=== PATIENT | male | born 1975 | race Caucasian/White ===

== ENCOUNTER 2019-02-08 11:43 | Emergency (ER) | payer BC, SELFPAY ==
[2019-02-08 11:50] VITALS: BP 138/88; PULSE 80; RESP 17; TEMP 36.7
--- NOTE | 2019-02-08 11:51 | W.ED.GENAD ---
Discharge Plan Disposition Patient Disposition: HOME Condition: Good Discharge Details Chief Complaint: EarProblem Clinical Impression: Otitis media, Acute left otitis media Primary Care Provider: DANITZA YING ED Provider: Darshan Quiñonez Home Meds and New Rx's Prescriptions: New amoxicillin-pot clavulanate [Augmentin] 875-125 mg tablet 1 tab PO BID 7 Days Qty: 14 RF: 0 loratadine 10 mg capsule 10 mg PO DAILY Qty: 14 RF: 0 Continued sumatriptan succinate [Imitrex] 50 MG tablet 50 mg PO PRN PRNRF: 0 lamotrigine [Lamictal] 25 MG tablet 25 mg PO HS RF: 0 Discontinued amoxicillin-pot clavulanate 1 TAB tablet 1 ea PO BID Qty: 20 RF: 0 No Action nortriptyline 50 mg Capsule 50 mg PO RF: 0 Discharge Instructions Instructions: Otitis Media (ED) Additional Instructions: You have left-sided otitis media. Please take the antibiotic as directed. Please take the antihistamine loratadine to help increase the drainage, as well as Tylenol and Motrin as needed for pain. If you notice any worsening of your symptoms, or any new symptoms such as vomiting, diarrhea, fever, chills, shortness of breath, chest pain, numbness, weakness, or fainting , please return immediately to the emergency department for reevaluation. Please follow up with your primary care provider as soon as possible for reassessment and reevaluation. As always, it was a pleasure participating in your medical care today. Referrals: DANITZA YING [Primary Care Provider] - Medical Decision Making This is a very pleasant 43-year-old male who presents for left ear pain for the last 2 to 3 days. He has a history of tympanic membrane ruptures and wanted to make sure that he caught an infection early. Exam demonstrates mild to moderate left-sided otitis media. No evidence of mastoiditis, meningitis, or other significant life-threatening abnormality. He is not diabetic. We will start Augmentin, recommend loratadine for drainage, and NSAIDs for pain control. I have extensively reviewed the treatment plan and discharge instructions with the patient. I have addressed all patient concerns at this time. The patient was made aware of what symptoms to monitor for that would warrant a return to the emergency department. Discussed the plan with the patient, they demonstrate verbal understanding and agreement with our assessment and plan at this time. HPI General Date/Time Provider Initiated Documentation: 02/08/19 11:45. HPI Narrative: This is a pleasant 43-year-old male with no significant past medical history who presents today for evaluation of left ear pain. He states that he has had mild congestion for the last week, then mild left-sided ear pain for the last 2 to 3 days which is gradually been worsening. He has a history of otitis media in the past which has led to rupture twice before. He denies any drainage or rupture yet, and states that he wants to catch it early. He denies any headache, neck pain, fever, chills, vision changes, chest pain, shortness of breath, numbness, tingling, weakness, nausea vomiting or diarrhea. He has no other complaints at this time. No other modifying factors. He is not on any antibiotics, nor has he been on any recently. Related Data Home Medications Medication Instructions Recorded Confirmed lamotrigine [Lamictal] 25 mg PO HS 09/14/13 09/14/13 sumatriptan succinate [Imitrex] 50 mg PO PRN PRN 09/14/13 09/14/13 amoxicillin-pot clavulanate 1 tab PO BID 7 Days #14 tab 02/08/19 [Augmentin] erenumab-aooe [Aimovig 02/08/19 Autoinjector (2 Pack)] loratadine 10 mg PO DAILY #14 cap 02/08/19 nortriptyline 50 mg PO 02/08/19 onabotulinumtoxinA [Botox] 02/08/19 Previous Rx's Medication Instructions Recorded amoxicillin-pot clavulanate 1 tab PO BID 7 Days #14 tab 02/08/19 [Augmentin] loratadine 10 mg PO DAILY #14 cap 02/08/19 Allergies Allergy/AdvReac Type Severity Reaction Status Date / Time No Known Allergies Allergy Unverified 09/14/13 15:54 Review of Systems Review of Systems All systems reviewed & are unremarkable except as noted in HPI and below PFSH Social History Smoking/Tobacco Use Status: Never Drug use: Never Exam Narrative Exam Narrative: 1.Const: Well-nourished, Well-developed, appearing stated age 2.Eyes: PERRL, no conjunctival injection, and symmetrical lids. 3.ENT: Atraumatic external nose and ears. Moist MM. Left tympanic membrane is erythematous, bulging, with evidence of effusion. No evidence of rupture. Mild erythema surrounding the tympanic membrane. No evidence of otitis externa though. Right tympanic membrane is land pearly with no evidence of significant infection or abnormality. Neck: Symmetric, trachea midline, No thyromegaly. Patient demonstrates good movement of cervical neck. There is no nuchal rigidity, no nuchal tenderness. Patient is able to flex the neck without any difficulty or significant pain. Negative Kernig's and Brudzinski sign. 4.CVS: +S1/S2, No murmurs or gallops. Peripheral pulses 2+ and equal in all extremities. Brisk capillary refill in all extremities. 5.RESP: Unlabored respiratory effort. Clear to auscultation bilaterally. No wheezes rales or rhonchi 6.GI: Soft, Nontender/Nondistended, No hepatosplenomegaly. No guarding or rebound. 7.MSK: Normocephalic/Atraumatic, Extremities w/o deformity or ttp No cyanosis or clubbing, Normal movement of all extremities 8.Skin: Warm, Dry. No rashes or lesions. 9.Neuro: nurse specialist II-XII grossly intact. Sensation grossly intact, no focal neurologic deficits. 10.Psych: (AAO) x3. Appropriate mood and affect
== END 2019-02-08 12:05 | disposition home or self-care (01) ==
LOC: ER 12:11
PROVIDERS: Emergency Provider Student in an Organized Health Care Education/Training Program; PCP Internal Medicine
DX: H66.92 Otitis media, unspecified, left ear (principal)
CPT/HCPCS: 99283

== ENCOUNTER 2021-02-25 09:20 | Outpatient (REF) | payer BC, SELFPAY ==
[2021-02-25 10:49] LABS: Bilirubin Negative (Negative); Blood Negative (Negative); Clarity Clear (Clear); Glucose Negative (Negative); Ketones Negative (Negative); Leukocyte Esterase Negative (Negative); Nitrite Negative (Negative); Specific Gravity >= 1.030 (1.005-1.025); Urobilinogen 0.2 EU/dL (Up TO 0.2); pH 6.5 (5-8)
[2021-02-26 13:39] LABS: Chlamydia Result Negative (Negative); GC Result Negative (Negative)
== END 2021-02-25 09:21 | disposition home or self-care (01) ==
LOC: LBN 09:20
PROVIDERS: PCP Internal Medicine; Visit Provider Student in an Organized Health Care Education/Training Program
DX: N50.82 Scrotal pain (principal)
CPT/HCPCS: 87491; 87591; 81003

== ENCOUNTER 2021-03-05 09:16 | Outpatient (CLI) | payer BC, SELFPAY ==
[2021-03-05 13:05] LABS: FREE T4 0.81 ng/dL (0.76-1.46); TSH 1.83 uIU/mL (0.36-3.74)
[2021-03-05 21:43] LABS: Rheumatoid Factor <8.6 IU/mL (<12.0)
[2021-03-06 10:41] LABS: Kappa Free Light Chain 1.14 mg/dL (0.33-1.94); Lambda Free Light Chain 1.38 mg/dL (0.57-2.63)
[2021-03-06 15:26] LABS: Albumin 66.1 % (55.8-66.1); Total Protein 7.1 g/dL (6.3-8.2)
[2021-03-06 15:45] LABS: SS-A Antibody 0.6 Units (<20.0); SS-B (La) Ab, IgG 2.6 Units (<20.0)
[2021-03-07 15:23] LABS: Thiamine (Vitamin B1), WB 119 nmol/L (70-180)
[2021-03-09 16:53] LABS: Pyridoxal 5-Phosphate (PLP), P 9 mcg/L (5-50)
== END 2021-03-05 09:17 | disposition home or self-care (01) ==
LOC: LBO 09:17
PROVIDERS: PCP Internal Medicine; Visit Provider Student in an Organized Health Care Education/Training Program
DX: G62.9 Polyneuropathy, unspecified (principal)
CPT/HCPCS: 36415; 83883; 84165; 84207; 84425; 84439; 84443; 86235; 86431

== ENCOUNTER 2022-02-17 12:34 | Emergency (ER) | payer BC, SELFPAY ==
[2022-02-17 12:57] VITALS: BP 119/92; PULSE 88; RESP 18; TEMP 37.1; O2SAT 97
--- NOTE | 2022-02-17 14:19 | W.ED.GENAD ---
Discharge Plan Disposition Patient Disposition: HOME Condition: Stable Discharge Details Clinical Impression: Blister Primary Care Provider: Yuriy Gunter ED Provider: Judith Coon Home Meds and New Rx's Prescriptions: New mupirocin 2 % ointment 1 applic topical BID 7 Days Qty: 22 0RF Continued sumatriptan succinate [Imitrex] 50 MG tablet 50 mg PO PRN PRN lamotrigine [Lamictal] 25 MG tablet 25 mg PO HS loratadine 10 mg capsule 10 mg PO DAILY Qty: 14 0RF nortriptyline 50 mg Capsule 50 mg PO PRN PRN Botox 100 unit Recon Soln PRN PRN Aimovig Autoinjector (2 Pack) 70 mg/mL Auto-Injector Discharge Instructions Additional Instructions: wash with soap and water twice a day keep covered during day allow to air dry apply mupirocin twice a day return earlier with spreading redness, fever, worsening pain Referrals: Yuriy Gunter [Primary Care Provider] - Discharge Data Discharge Date/Time-TO BE ENTERED AT DEPARTURE: 02/17/22 14:34 Medical Decision Making mupirocin ointment supplied no evidence of obvious infection return precautions discussed Medical Records Medical records reviewed: Yes I reviewed the patient's medical records. HPI General Date/Time Provider Initiated Documentation: 02/17/22 14:14. 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 Did go for a hike in [place] reportedly wondering if he has a blister. denies any fever, chills, or aditional complaints at this time Related Data Home Medications Medication Instructions Recorded Confirmed lamotrigine 25 mg tablet (Lamictal) 25 mg PO HS 09/14/13 02/17/22 sumatriptan succinate 50 mg tablet 50 mg PO PRN PRN 09/14/13 02/17/22 (Imitrex) erenumab-aooe 70 mg/mL 02/08/19 subcutaneous auto-injector (Aimovig Autoinjector 140 mg/2 Pack () loratadine 10 mg capsule 10 mg PO DAILY #14 caps 02/08/19 02/17/22 nortriptyline 50 mg capsule 50 mg PO PRN PRN 02/08/19 02/17/22 onabotulinumtoxinA 100 unit PRN PRN 02/08/19 solution for injection (Botox) mupirocin 2 % topical ointment 1 applic topical BID 7 days #22 02/17/22 grams Previous Rx's Medication Instructions Recorded loratadine 10 mg capsule 10 mg PO DAILY #14 caps 02/08/19 mupirocin 2 % topical ointment 1 applic topical BID 7 days #22 02/17/22 grams Allergies Allergy/AdvReac Type Severity Reaction Status Date / Time pantoprazole [From Protonix] AdvReac Mild Hives Unverified 02/17/22 13:04 General Stated Complaint: GenMedical ANN: 4 Review of Systems Narrative: ROS obtained x3 and negative aside from HPI PFSH All Active Problems (Updated 02/17/22 @ 14:24 by SOILA Silverman) Blister (Acute) Social History Smoking/Tobacco Use Status: Never Smoking risk assessment performed?: Yes Drug use: Never Substance use type: does not use Do you feel safe at home: Yes Do you feel safe in your relationship?: Yes Exam Const General: cooperative, comfortable and no acute distress Orientation: alert Extrem Ankle/foot/toe images: 1. blister noted, no erythema, tenderness, no induration n/v intact Course Vital Signs Vital signs: Vital Signs Temperature 37.1 C 02/17/22 12:57 Pulse 88 02/17/22 12:57 Respiratory Rate 18 02/17/22 12:57 Blood Pressure 119/92 H 02/17/22 12:57 Pulse Oximetry 97 02/17/22 12:57 Temperature 37.1 C 02/17/22 12:57 Temperature Source Tympanic 02/17/22 12:57 Pulse 88 02/17/22 12:57 Respiratory Rate 18 02/17/22 12:57 Respiratory Effort Non-Labored 02/17/22 14:10 Respiratory Depth Normal 02/17/22 14:10 Respiratory Pattern Normal 02/17/22 14:10 Blood Pressure 119/92 H 02/17/22 12:57 Blood Pressure Position Sitting 02/17/22 12:57 Pulse Oximetry 97 02/17/22 12:57 Oxygen Delivery Method Room Air 02/17/22 12:57 Oxygen Flow Rate 0 02/17/22 12:57 Pain Level 0 02/17/22 12:57
[2022-02-17 14:20] VITALS: BP 119/92; PULSE 88; RESP 18; TEMP 37.1; O2SAT 97
== END 2022-02-17 14:34 | disposition home or self-care (01) ==
PROVIDERS: Emergency Provider Physician Assistant; PCP Internal Medicine
DX: S90.822A Blister (nonthermal), left foot, initial encounter (principal); X58.XXXA Exposure to other specified factors, initial encounter
CPT/HCPCS: 99283

== ENCOUNTER 2023-02-08 13:19 | Outpatient (CLI) | payer BC, SELFPAY ==
--- NOTE | 2023-02-08 15:36 | DI.RAD_ITS ---
Exam(s) XR FOOT RT COMPLETE EXAM: XR FOOT RT COMPLETE CLINICAL HISTORY: RT GREAT TOE PAIN, PAIN LATERAL PORTION OF RT ANKLE, M79.674, M25.571. TECHNIQUE: 2D digital imaging was performed. Three views. COMPARISON: No exams were available for comparison FINDINGS: BONES: No acute fracture is present. No bony destructive lesion is seen. JOINTS: No dislocation present. Moderate degenerative changes 1st MTP joint. No hallux valgus. Deg enerative changes also seen at sesamoid 1st metatarsal joint. SOFT TISSUE: Normal. IMPRESSION: Degenerative changes 1st MTP joint. DATA REPOSITORY: RADIATION DOSE DELIVERED:
== END 2023-02-08 13:39 ==
LOC: DI 13:19
PROVIDERS: PCP Internal Medicine; Visit Provider Student in an Organized Health Care Education/Training Program
DX: M18.9 Osteoarthritis of first carpometacarpal joint, unspecified (principal)
CPT/HCPCS: 73630

== ENCOUNTER 2024-02-29 09:04 | Outpatient (CLI) | payer BC, SELFPAY ==
[2024-02-29 09:20] LABS: HCT 42.8 % (40.0-50.0); HGB 14.6 g/dL (13.5-17.5); MCH 30.4 pg (27.0-33.0); MCHC 34.1 % (32.0-36.0); MCV 89 fL (80-95); MPV 9.4 fL (8.0-11.0); Platelet Count 235 10^3/uL (130-400); RBC 4.81 10^6/uL (4.36-5.78); RDW 12.3 % (11.8-14.1); RDW-SD 40.7 fL; WBC 3.54 10^3/uL (4.4-10.8)
[2024-02-29 10:16] LABS: ALT 38 U/L (16-63); AST 45 U/L (15-37); Albumin 4.2 g/dL (3.4-5.0); Alkaline Phosphatase 70 U/L (46-116); Anion Gap 5.8 mmol/L (3-11); BUN 15 mg/dL (7-18); Bilirubin, Total 0.39 mg/dL (0.2-1.0); CO2 32.2 mmol/L (21.0-32.0); CREATININE 0.9 mg/dL (0.70-1.30); Calcium 8.9 mg/dL (8.5-10.1); Calculated LDL 162 mg/dL (<100); Chloride 104 mmol/L (98-107); Cholesterol 245 mg/dL (<200); Glucose 95 mg/dL (74-106); HDL Cholesterol 75 mg/dL (40-60); Potassium 4.1 mmol/L (3.5-5.1); Sodium 142 mmol/L (136-145); Total Protein 7.7 g/dL (6.4-8.2); Triglyceride 44 mg/dL (<150)
== END 2024-02-29 09:05 | disposition home or self-care (01) ==
LOC: LBO 09:04
PROVIDERS: PCP Student in an Organized Health Care Education/Training Program; Visit Provider Student in an Organized Health Care Education/Training Program
DX: E78.49 Other hyperlipidemia (principal); G47.00 Insomnia, unspecified; R53.83 Other fatigue
CPT/HCPCS: 36415; 80053; 80061; 85027

== ENCOUNTER 2024-06-06 03:14 | Outpatient (CLI) | payer BC, SELFPAY ==
[2024-06-06 09:41] LABS: ALT 28 U/L (16-63); AST 34 U/L (15-37); Albumin 4.1 g/dL (3.4-5.0); Alkaline Phosphatase 76 U/L (46-116); Bilirubin, Total 0.46 mg/dL (0.2-1.0); Calculated LDL 142 mg/dL (<100); Cholesterol 220 mg/dL (<200); HDL Cholesterol 65 mg/dL (40-60); Total Protein 7.8 g/dL (6.4-8.2); Triglyceride 69 mg/dL (<150)
[2024-06-06 09:50] LABS: Bilirubin, Direct 0.1 mg/dL (0.0-0.2)
== END 2024-06-06 03:15 | disposition home or self-care (01) ==
PROVIDERS: PCP Student in an Organized Health Care Education/Training Program; Visit Provider Internal Medicine
DX: E78.49 Other hyperlipidemia (principal)
CPT/HCPCS: 36415; 80061; 80076

== ENCOUNTER 2024-10-31 02:23 | Outpatient (CLI) | payer OTHER, SELFPAY ==
[2024-10-31 08:19] LABS: ALT 52 U/L (16-63); AST 42 U/L (15-37); Alkaline Phosphatase 66 U/L (46-116); Bilirubin, Total 0.5 mg/dL (0.2-1.0); Calculated LDL 144 mg/dL (<100); Cholesterol 234 mg/dL (<200); HDL Cholesterol 76 mg/dL (>or=40); Total Protein 7.4 g/dL (6.4-8.2); Triglyceride 73 mg/dL (<150)
[2024-10-31 08:58] LABS: Bilirubin, Direct 0.1 mg/dL (0.0-0.2)
== END 2024-10-31 02:24 | disposition home or self-care (01) ==
PROVIDERS: PCP Student in an Organized Health Care Education/Training Program; Visit Provider Internal Medicine
DX: E78.49 Other hyperlipidemia (principal)
CPT/HCPCS: 36415; 80061; 80076

== ENCOUNTER 2025-06-06 01:58 | Outpatient (CLI) | payer OTHER, SELFPAY ==
[2025-06-06 08:32] LABS: ALT 65 U/L (16-63); AST 52 U/L (15-37); Albumin 4.1 g/dL (3.4-5.0); Alkaline Phosphatase 71 U/L (46-116); Bilirubin, Total 0.3 mg/dL (0.2-1.0); Calculated LDL 99 mg/dL (<100); Cholesterol 172 mg/dL (<200); HDL Cholesterol 63 mg/dL (>or=40); Total Protein 7.5 g/dL (6.4-8.2); Triglyceride 51 mg/dL (<150)
[2025-06-06 08:54] LABS: Bilirubin, Direct 0.1 mg/dL (0.0-0.2)
== END 2025-06-06 01:59 | disposition home or self-care (01) ==
LOC: LBO 01:58
PROVIDERS: PCP Student in an Organized Health Care Education/Training Program; Visit Provider Student in an Organized Health Care Education/Training Program
DX: E78.49 Other hyperlipidemia (principal)
CPT/HCPCS: 36415; 80061; 80076